=== PATIENT | female | born 1965 | race Caucasian/White ===

== ENCOUNTER 2016-06-05 18:08 | Observation (INO) | payer OTHER ==
[~2016-06-05] VITALS: Ht 162.6 cm; Wt 57.2 kg
[~2016-06-05 18:08] MED LIST: AMBIEN10 MG; ATIVAN0.5 MG PO; BUSPAR10 MG PO; DEXILANT60 MG PO; DUONEB 2.5-0.5 M3 ML AEROSOL; ESCITALOPRAM OX10 MG PO; FISH OIL500 MG PO; KLONOPIN1 MG; LEXAPRO; LEXAPRO5 MG PO; LIDODERM 5% P1 PATCH TD; METOPROLOL SUCC50 MG PO; MOTRIN600 MG PO; MOTRIN800 MG PO; NOHOMEMEDS; NORCO 5/3251 TABLET PO; PAXIL40 MG; PAXIL40 MG PO; PERCOCET 5/31 TABLET PO; PREDNISONE20 MG PO; PROVENTIL,2.5 MG/0.5 AEROSOL; QUETIAPINE FUMA50 MG PO; RANITIDINE HCL150 MG PO; ZESTRIL20 MG PO
[2016-06-05 19:48] LABS: MCH 35.5 PG (29.0-34.0); MCHC 35.7 G/DL (30.0-36.0); MCV 99.5 FL (83-99); PLATELET COUNT 218 K/uL (156-360); RBC DIS.WIDTH-CV 12.3 % (11.8-14.6); RBC DIS.WIDTH-SD 44.2 % (39-53); RED BLOOD COUNT 4.42 M/uL (3.80-5.20); WHITE BLOOD COUNT 6.9 K/uL (4.1-10.2)
[2016-06-05 20:03] LABS: CHLORIDE 103 mEq/L (99-109); POTASSIUM 3.5 mEq/L (3.7-5.4); SODIUM 141 mEq/L (136-147)
[2016-06-05 20:04] LABS: GLUCOSE 138 mg/dL (70-99)
[2016-06-05 20:06] LABS: ANION GAP 15 MEQ/L (2-14)
[2016-06-05 20:08] LABS: GFR ESTIMATE (CALCULATED) > 59 mL/min/
[2016-06-05 20:09] LABS: UREA NITROGEN (BUN) 5 mg/dL (9-23)
[2016-06-05 20:12] LABS: TROP-I INTERPRETATION NEGATIVE; TROPONIN-I < 0.01 ng/mL (0.0-0.30)
[2016-06-05 22:08] LABS: D-DIMER ELISA < 0.15 mg/L FEU (< 0.57)
[2016-06-05] MEDS ORDERED: TRAZODONE HCL50 MG PO (22:31)
[2016-06-05] MEDS ORDERED: HYDROCODON-ACE1 EAC7 PO (22:32)
[2016-06-05] MEDS ORDERED: ASPIRIN325 MG PO (22:32)
[2016-06-05 23:03] LABS: TROP-I INTERPRETATION NEGATIVE; TROPONIN-I < 0.01 ng/mL (0.0-0.30)
[2016-06-05 23:37] VITALS: BP 194/86
[2016-06-06 02:08] LABS: TROP-I INTERPRETATION NEGATIVE; TROPONIN-I < 0.01 ng/mL (0.0-0.30)
[2016-06-06 04:46] VITALS: BP 131/71
[2016-06-06 07:15] VITALS: BP 136/80
[2016-06-06 08:08] LABS: Estimated Average Glucose 103 mg/dL (70-123); HEMOGLOBIN A1c (GLYCOHEMOGLOB) 5.2 % HGB (Below 5.7)
[2016-06-06 08:10] LABS: HEMATOCRIT 40.1 % (36.0-46.0); MCH 34.9 PG (29.0-34.0); MCHC 34.4 G/DL (30.0-36.0); MCV 101.5 FL (83-99); MEAN PLAT.VOLUME 10.8 uM^3 (9.5-12.4); PLATELET COUNT 185 K/uL (156-360); RBC DIS.WIDTH-CV 12.6 % (11.8-14.6); RBC DIS.WIDTH-SD 46.6 % (39-53); RED BLOOD COUNT 3.95 M/uL (3.80-5.20); WHITE BLOOD COUNT 5.3 K/uL (4.1-10.2)
[2016-06-06 08:35] LABS: TROP-I INTERPRETATION NEGATIVE; TROPONIN-I < 0.01 ng/mL (0.0-0.30)
[2016-06-06 08:37] LABS: ALKALINE PHOSPHATASE 71 IU/L (3-129); ANION GAP 10 MEQ/L (2-14); CHLORIDE 105 MEQ/L (99-109); GFR ESTIMATE (CALCULATED) > 59 mL/min/; GLUCOSE 120 mg/dL (70-99); POTASSIUM 4.1 MEQ/L (3.7-5.4); SAMPLE HEMOLYSIS CHECK 0; SAMPLE ICTERIC CHECK 0; SAMPLE LIPEMIA CHECK 0; SODIUM 140 MEQ/L (136-147); TOTAL BILIRUBIN 0.9 MG/DL (0.0-1.0); UREA NITROGEN (BUN) 5 mg/dL (9-23)
[2016-06-06 11:34] VITALS: BP 151/90
== END 2016-06-06 14:12 | disposition home or self-care (01) ==
LOC: EME 18:08 → 5WEST 22:24 → EDOF 22:24 → 5WEST 23:28
PROVIDERS: Emergency Medicine; Internal Medicine
DX: R07.9 Chest pain, unspecified (principal); R94.31 Abnormal electrocardiogram [ECG] [EKG]; F32.9 Major depressive disorder, single episode, unspecified; R00.2 Palpitations; Z91.128 Patient's intentional underdosing of medication regimen for other reason; T43.206A Underdosing of unspecified antidepressants, initial encounter; R63.4 Abnormal weight loss; I10 Essential (primary) hypertension; K21.9 Gastro-esophageal reflux disease without esophagitis; J44.9 Chronic obstructive pulmonary disease, unspecified; G89.29 Other chronic pain; F17.210 Nicotine dependence, cigarettes, uncomplicated; Z88.8 Allergy status to other drugs, medicaments and biological substances
CPT/HCPCS: 71020; 80048; 80053; 83036; 84134; 84439; 84443; 84484; 85027; 85379; 93005; 99281; 99285; G0378; J1644

== ENCOUNTER 2016-06-08 19:50 | Emergency (ER) | payer OTHER ==
[~2016-06-08] VITALS: Ht 162.6 cm; Wt 59.4 kg
[~2016-06-08 19:50] MED LIST changes: +ASPIRIN325 MG PO; +HYDROCODON-ACE1 EAC7 PO; +TRAZODONE HCL50 MG PO
[2016-06-08 21:52] LABS: ADD MIUA? YES; BILIRUBIN NEGATIVE; BLOOD SMALL; COLOR COLORLESS ((YELLOW)); GLUCOSE (STRIP) NEGATIVE; KETONES NEGATIVE; LEUKOCYTES NEGATIVE; NITRITE NEGATIVE; PROTEIN (STRIP) NEGATIVE; SPECIFIC GRAVITY 1.003 (1.000-1.030); UROBILINOGEN 0.2 MG/DL (0.2-1.0)
[2016-06-08 22:03] LABS: HEMATOCRIT 40.9 % (36.0-46.0); MCH 34.7 PG (29.0-34.0); MCV 99.3 FL (83-99); MEAN PLAT.VOLUME 9.7 uM^3 (9.5-12.4); PLATELET COUNT 221 K/uL (156-360); RBC DIS.WIDTH-CV 12.3 % (11.8-14.6); RBC DIS.WIDTH-SD 43.1 % (39-53); RED BLOOD COUNT 4.12 M/uL (3.80-5.20); WHITE BLOOD COUNT 8.5 K/uL (4.1-10.2)
[2016-06-08 22:04] LABS: AMPHETAMINE NEGATIVE (500 ng/mL); BARBITURATES NEGATIVE (200 ng/mL); BENZODIAZEPINES NEGATIVE (150 ng/mL); COCAINE NEGATIVE (150 ng/mL); METHADONE NEGATIVE (200 ng/mL); METHAMPHETAMINE NEGATIVE (500 ng/mL); OPIATES (MORPHINE) NEGATIVE (100 ng/mL); OXYCODONE NEGATIVE (100 ng/mL); PHENCYCLIDINE NEGATIVE (25 ng/mL); PROPOXYPHENE NEGATIVE (300 ng/mL); THC CANNABINOIDS NEGATIVE (50 ng/mL); TRICYCLIC ANTIDEPRESSANTS NEGATIVE (300 ng/mL)
[2016-06-08 22:05] LABS: BACTERIA NONE SEEN /HPF; EPITHELIAL CELLS RARE /HPF; INTERNAL CONTROLS VALID? YES; MUCUS NONE SEEN /LPF; RED BLOOD CELLS 0-5 /HPF (0-5); WHITE BLOOD CELLS 0-5 /HPF (0-5)
[2016-06-08 22:09] LABS: CHLORIDE 107 mEq/L (99-109); SODIUM 143 mEq/L (136-147)
[2016-06-08 22:11] LABS: GLUCOSE 105 mg/dL (70-99)
[2016-06-08 22:12] LABS: ANION GAP 17 MEQ/L (2-14)
[2016-06-08 22:13] LABS: TOTAL BILIRUBIN 0.5 mg/dL (0.0-1.0)
[2016-06-08 22:14] LABS: POTASSIUM 3.1 mEq/L (3.7-5.4); SERUM ETHYL ALCOHOL 239 mg/dL
[2016-06-08 22:15] LABS: ALKALINE PHOSPHATASE 82 IU/L (3-129); GFR ESTIMATE (CALCULATED) > 59 mL/min/
[2016-06-08 22:16] LABS: UREA NITROGEN (BUN) 7 mg/dL (9-23)
[2016-06-09 05:59] VITALS: BP 115/83
== END 2016-06-09 06:00 | disposition home or self-care (01) ==
LOC: EME 19:50
PROVIDERS: Emergency Medicine
DX: F33.2 Major depressive disorder, recurrent severe without psychotic features (principal); F10.229 Alcohol dependence with intoxication, unspecified; E87.6 Hypokalemia; I10 Essential (primary) hypertension; G89.29 Other chronic pain; Z79.891 Long term (current) use of opiate analgesic; Z79.82 Long term (current) use of aspirin; Y90.7 Blood alcohol level of 200-239 mg/100 ml; F17.200 Nicotine dependence, unspecified, uncomplicated
CPT/HCPCS: 80053; 81003; 85027; 90837; 99281; 99285; G0480; J1630; J2060

== ENCOUNTER 2016-07-26 07:07 | Emergency (ER) | payer OTHER ==
[~2016-07-26] VITALS: Ht 162.6 cm; Wt 54.9 kg
[2016-07-26 07:53] LABS: BASOPHIL COUNT 0.1 K/uL (0-0.1); EOSINOPHIL (%) 0.2 % (0-5); HEMATOCRIT 44.2 % (36.0-46.0); IMMATURE GRANULOCYTE (%) 0.5 % (0.0-0.7); INSTRUMENT ABS NEUTROPHIL CT 6.3 K/uL; LYMPHOCYTE COUNT 1.4 K/uL (1.0-2.8); MCH 34.6 PG (29.0-34.0); MCHC 34.4 G/DL (30.0-36.0); MCV 100.7 FL (83-99); MEAN PLAT.VOLUME 9.5 uM^3 (9.5-12.4); MONOCYTE (%) 8.7 % (3-12); MONOCYTE COUNT 0.7 K/uL (0-0.8); NEUTROPHIL COUNT 6.3 K/uL (1.8-6.4); PLATELET COUNT 226 K/uL (156-360); RBC DIS.WIDTH-SD 44.5 % (39-53); RED BLOOD COUNT 4.39 M/uL (3.80-5.20); WHITE BLOOD COUNT 8.5 K/uL (4.1-10.2)
[2016-07-26 08:04] LABS: CHLORIDE 97 mEq/L (99-109); POTASSIUM 3.3 mEq/L (3.7-5.4); SODIUM 136 mEq/L (136-147)
[2016-07-26 08:06] LABS: GLUCOSE 106 mg/dL (70-99)
[2016-07-26 08:07] LABS: ANION GAP 16 MEQ/L (2-14)
[2016-07-26 08:10] LABS: GFR ESTIMATE (CALCULATED) > 59 mL/min/
[2016-07-26 08:11] LABS: UREA NITROGEN (BUN) 11 mg/dL (9-23)
[2016-07-26] MEDS ORDERED: LORAZEPAM1 MG PO (09:35)
[2016-07-26] MEDS ORDERED: XANAX0.5 MG PO (11:09)
[2016-07-26 11:27] VITALS: BP 120/87
== END 2016-07-26 11:30 | disposition home or self-care (01) ==
LOC: EME → EDBD 07:07 → EME 07:07
PROVIDERS: Emergency Medicine
DX: F41.9 Anxiety disorder, unspecified (principal); I10 Essential (primary) hypertension; F17.200 Nicotine dependence, unspecified, uncomplicated; Z88.8 Allergy status to other drugs, medicaments and biological substances; Z79.82 Long term (current) use of aspirin
CPT/HCPCS: 80048; 85025; 93005; 99281; 99285

== ENCOUNTER 2017-06-02 10:04 | Emergency (ER) | payer OTHER ==
[~2017-06-02] VITALS: Ht 162.6 cm; Wt 41.2 kg
[~2017-06-02 10:04] MED LIST changes: +LORAZEPAM1 MG PO; +XANAX0.5 MG PO
[2017-06-02] MEDS ORDERED: ATIVAN2 MG PO (10:58)
[2017-06-02 11:35] VITALS: BP 139/92
== END 2017-06-02 11:37 | disposition home or self-care (01) ==
LOC: EME 10:04
DX: G62.9 Polyneuropathy, unspecified (principal); G47.00 Insomnia, unspecified; K21.9 Gastro-esophageal reflux disease without esophagitis; I10 Essential (primary) hypertension; F32.9 Major depressive disorder, single episode, unspecified; F41.9 Anxiety disorder, unspecified; F17.200 Nicotine dependence, unspecified, uncomplicated; Z79.82 Long term (current) use of aspirin; Z79.891 Long term (current) use of opiate analgesic; Z88.8 Allergy status to other drugs, medicaments and biological substances
CPT/HCPCS: 99281; 99285

== ENCOUNTER 2017-07-05 13:45 | Emergency (ER) | payer OTHER ==
[~2017-07-05] VITALS: Ht 162.6 cm; Wt 47.1 kg
[~2017-07-05 13:45] MED LIST changes: +ATIVAN2 MG PO
[2017-07-05 14:58] LABS: HEMATOCRIT 42.5 % (36.0-46.0); HEMOGLOBIN 15.6 G/DL (11.9-15.5); MCH 36.4 PG (29.0-34.0); MCHC 36.7 G/DL (30.0-36.0); MCV 99.3 FL (83-99); PLATELET COUNT 251 K/uL (156-360); RBC DIS.WIDTH-CV 11.3 % (11.8-14.6); RBC DIS.WIDTH-SD 41.3 % (39-53); RED BLOOD COUNT 4.28 M/uL (3.80-5.20); WHITE BLOOD COUNT 6.7 K/uL (4.1-10.2)
[2017-07-05 14:58] LABS: AMPHETAMINE NEGATIVE (500 ng/mL); BARBITURATES NEGATIVE (200 ng/mL); BENZODIAZEPINES NEGATIVE (150 ng/mL); BUPRENORPHINE NEGATIVE (10 ng/mL); COCAINE NEGATIVE (150 ng/mL); METHADONE NEGATIVE (200 ng/mL); METHAMPHETAMINE NEGATIVE (500 ng/mL); OPIATES (MORPHINE) PRESUMPTIVE POSITIVE (100 ng/mL); OXYCODONE NEGATIVE (100 ng/mL); PHENCYCLIDINE NEGATIVE (25 ng/mL); PROPOXYPHENE NEGATIVE (300 ng/mL); THC CANNABINOIDS NEGATIVE (50 ng/mL); TRICYCLIC ANTIDEPRESSANTS NEGATIVE (300 ng/mL)
[2017-07-05 15:06] LABS: CHLORIDE 105 mEq/L (99-109); POTASSIUM 3.2 mEq/L (3.7-5.4)
[2017-07-05 15:07] LABS: SODIUM 141 mEq/L (136-147)
[2017-07-05 15:08] LABS: GLUCOSE 87 mg/dL (70-99)
[2017-07-05 15:11] LABS: SERUM ETHYL ALCOHOL 169 mg/dL
[2017-07-05 15:12] LABS: CREATININE 0.6 mg/dL (0.6-1.3); GFR ESTIMATE (CALCULATED) > 59 mL/min/
[2017-07-05 15:14] LABS: UREA NITROGEN (BUN) 5 mg/dL (9-23)
[2017-07-05 15:15] LABS: SALICYLATE < 5.0 MG/DL (15-30)
[2017-07-05 15:16] LABS: ACETAMINOPHEN (TYLENOL) < 10 mcg/mL (10-30)
[2017-07-05] MEDS ORDERED: GABAPENTIN100 MG PO (18:02)
[2017-07-05 19:06] VITALS: BP 142/89
== END 2017-07-05 19:07 | disposition home or self-care (01) ==
LOC: EME 13:45
PROVIDERS: Emergency Medicine
DX: G62.9 Polyneuropathy, unspecified (principal); F33.0 Major depressive disorder, recurrent, mild; F10.20 Alcohol dependence, uncomplicated; Y90.6 Blood alcohol level of 120-199 mg/100 ml; I10 Essential (primary) hypertension; K21.9 Gastro-esophageal reflux disease without esophagitis; Z79.82 Long term (current) use of aspirin; F17.200 Nicotine dependence, unspecified, uncomplicated
CPT/HCPCS: 80048; 84999; 85027; 90839; 99281; 99285; G0480; J1885